=== PATIENT | female | born 1970 ===

== ENCOUNTER 2018-08-19 10:58 | Emergency (ER) | payer OTHER ==
[2018-08-19 13:31] VITALS: BP 134/91; PULSE 74; RESP 18; TEMP 98.1; O2SAT 99
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
== END 2018-08-19 14:30 | disposition home or self-care (01) ==
LOC: H.ER 10:58
DX: F43.22 Adjustment disorder with anxiety (principal); I10 Essential (primary) hypertension